=== PATIENT | female | born 1980 | race Caucasian/White ===

== ENCOUNTER 2016-04-19 14:46 | Inpatient (IN) | payer OTHER ==
[2016-04-19] MEDS ORDERED: ALBUTEROL NEB 2.5 MG/3 ML VIAL.NEB NEB ONE ×2 (15:09→17:24)
[2016-04-19] MEDS ORDERED: ALBUTEROL/IPRATROPIUM 2.5/0.5 MG 3 ML/EACH DOSE ONE (15:09)
--- NOTE | 2016-04-19 15:52 | RAD ---
CHEST 2 VIEWS HISTORY: Cough and shortness of breath x3 days. Fever. Frontal and lateral chest radiographs dated 04/19/2016. COMPARISON: 05/14/2014. FINDINGS: FOCAL AIRSPACE OPACITY: Bibasilar airspace opacities, right greater than left. PLEURAL EFFUSION: None. CARDIOMEDIASTINAL SILHOUETTE: Nonenlarged. PNEUMOTHORAX: None identified. OSSEOUS STRUCTURES: No grossly destructive lesions. IMPRESSION: Bilateral lower lobe pneumonia. Recommend short-term follow-up examination to ensure resolution of abnormality.
[2016-04-19 16:38] LABS: BASO % 0.3 % (0.2-1.0); EOS # 0.1 (0.0-0.5); EOS % 0.8 % (0.9-2.9); HEMATOCRIT 35.5 % (37.0-47.0); HEMOGLOBIN 11.6 gm/l (12.0-16.0); IMM NEUT% 0.5 % (0-1); LYMPH # 2.1 (1.0-4.8); LYMPH % 27.7 % (15-45); MEAN CELL VOLUME 83.1 fl (81.0-99.0); MEAN CORPUSCULAR HEMOGLOBIN 27.2 pg (27.0-31.0); MEAN CORPUSCULAR HGB CONC 32.7 g/dl (33.0-37.0); MEAN PLATELET VOLUME 10.3 fl (7.4-10.4); MONO # 0.4 (0.0-0.8); MONO % 5.3 % (4-12); NEUT % 65.4 % (43-75); PLATELET COUNT 232 K/mm3 (130-400); RED CELL DISTRIBUTION WIDTH 13.7 % (11.5-14.5)
[2016-04-19] MEDS ORDERED: AZITHROMYCIN 500 MG VIAL ONE (16:41)
[2016-04-19] MEDS ORDERED: ACETAMINOPHEN 500 MG TABLET ONE (16:41)
[2016-04-19] MEDS ORDERED: SODIUM CHLORIDE 0.9% 1,000 ML ONE (16:41)
[2016-04-19] MEDS ORDERED: SODIUM CHLORIDE 0.9% 250 ML IV ONE (16:42)
[2016-04-19 16:58] LABS: I-STAT CREATININE 0.7 mg/dL (0.6-1.3)
[2016-04-19 17:04] LABS: HCG,QUALITATIVE URINE NEGATIVE
[2016-04-19] MEDS ORDERED: CEFTRIAXONE 1 GRAM DUPLEX 50 ML IV ONE (18:16)
[2016-04-19] MEDS ORDERED: MAGNESIUM HYDROXIDE 30 ML UDCUP PO PRN (19:44)
[2016-04-19] MEDS ORDERED: MENTHOL/CETYLPYRD 1 EACH LOZENGE PO PRN (19:44)
[2016-04-19] MEDS ORDERED: BLISTEX LIPSTICK 1 EACH TP PRN (19:44)
[2016-04-19] MEDS ORDERED: SODIUM CHLORIDE 0.9% 100 ML IV PRN (19:44)
[2016-04-19] MEDS ORDERED: BISACODYL 5 MG TABLET.EC PO PRN (19:44)
[2016-04-19] MEDS ORDERED: BISACODYL 10 MG SUP PR PRN (19:44)
[2016-04-19] MEDS ORDERED: ALBUTEROL NEB 2.5 MG/3 ML VIAL.NEB NEB PRN (19:47)
--- NOTE | 2016-04-19 20:58 | HP ---
KIMMIE JOLLY [id number] DATE OF ADMISSION: April 19, 2016 CHIEF COMPLAINT: Cough. HISTORY OF PRESENT ILLNESS: The patient is a 36-year-old female who reports a two to three week history of some chills, aches and feeling cold. She generally had been doing better and was feeling that she was getting over this when she started having more of a cough three days ago with dyspnea over the three day period. She notes some chest pain, some yellow sputum and feeling dizzy and feeling shaky. 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 She vomited once in a post tussive fashion but has otherwise not had a lot of gastrointestinal symptoms. She presented to the emergency room and was noted to have bilateral lower lobe infiltrates. PAST MEDICAL HISTORY: 1. She has a history of preeclampsia in 2013. 2. She is 10, para 6, with last delivery December 16, 2015 and is still nursing. PAST SURGICAL HISTORY: 1. section in 2015. 2. Tubal ligation in 2015. ALLERGIES: 1. AMOXICILLIN WHICH GAVE HER SOME FEELING OF BEING WORSE AND A FEVER. 2. PENICILLIN. 3. IMITREX. MEDICATIONS: She takes: 1. Acetaminophen. 2. Ibuprofen. 3. She had previously been on Robitussin but does not take any prescription medications. 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 She is single but lives with her four kids and her son's father. He works testing [place]. She has eight dogs and three cats. Kids are ages 15, 8, 6, and 4 months old. No smoking, no alcohol. No particular religion affiliation. Hobbies include being a mom. She denies having enough free time for a hobby. FAMILY HISTORY: Father, no data. Mom, leaky heart valve. Some other family history of heart disease, and her sister has atrial fibrillation. REVIEW OF SYSTEMS: Eyes have been okay, just needing glasses. 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 Nose is okay. Mouth is okay. Teeth are okay. Neck is okay. She has had this cough as above. No heart complaints except for palpitations when stressed. Stomach is okay, no diarrhea, just the post tussive vomiting noted before. No urinary complaints. She is not . Last menstrual period was March 22, 2015. She has had no central nervous symptom problems, no strokes, no seizures and reports mood has been good. PHYSICAL EXAM: GENERAL: A pale female. VITAL SIGNS: Temperature 98.6, pulse 118, saturation 93% on two liters, blood pressure 100/71, respirations 18. HEAD: Head is normocephalic, atraumatic. EYES: Are unremarkable. EARS: Grossly unremarkable. NOSE: Is normal. MOUTH: Oropharynx unremarkable. Dentition is good. NECK: Is supple, without masses or adenopathy. LUNGS: Crackles heard at the bases bilaterally with some slight wheezy breath sounds and decreased air movement bilaterally. HEART: Regular rate and rhythm, she is slightly tachycardic. ABDOMEN: Soft, nontender, nondistended. Bowel sounds are normal. No rebound, no guarding, no masses. EXTREMITIES: Without edema. She has [place] tattooed on the side of her foot and another tattoo on her left forearm. NEUROLOGIC: Eye contact is good. Speech is appropriate. Cranial nerves are intact. She appears tired but otherwise answers appropriately. LABORATORY: Lab is incomplete so far due to machine being down but shows a white count of 7.6, hemoglobin 11.6, platelets 232. MCV is 83.1, lactate 2.2. Sodium 141, potassium 3.1, chloride 104, BUN 6, creatinine 0.7, glucose 134, calcium ionized is 1.12. HCG is negative. Influenza testing is negative. Liver function tests are pending. IMAGING: Chest x-ray shows bilateral lower lobe pneumonia. ASSESSMENT AND PLAN: 1. Bilateral lower lobe pneumonia, community acquired pneumonia. Could be post influenza bacterial superinfection. Anticipate Rocephin, azithromycin and albuterol with oxygen supplementation at this time and monitor for response. We will see if cultures are helpful. 2. Four months . We will check a BNP and a D-dimer but anticipate that these are not likely to be factors. 3. 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 Review of azithromycin and Rocephin should be okay in case of nursing. 4. Respiratory distress associated with community acquired pneumonia. Anticipate oxygen, nebulizers. 5. Sepsis with tachycardia and impaired respiratory function and elevated lactate. We will be giving additional dose of IV fluid and recheck lactate later tonight here, anticipate 30 mL per kilogram IV fluid bolus and recheck lactate. cc: Soy Horan M.D.
[2016-04-19] MEDS ORDERED: PUMP TUBING ONE (21:51)
[2016-04-19] MEDS: SODIUM CHLORIDE 0.9% 1,000 ML IV SCH ×2 (21:56→23:09)
[2016-04-19 21:59] LABS: ALB/GLOB RATIO 0.9 (>1.0); ALBUMIN 3.7 gm/dL (3.5-5.7); CALCIUM 8.7 mg/dL (8.6-10.3)
[2016-04-19] MEDS: IBUPROFEN 200 MG TABLET PO PRN (22:22)
[2016-04-19] MEDS: DOCUSATE SODIUM 100 MG CAPSULE PO SCH (22:23)
[2016-04-19 22:39] LABS: SPECIFIC GRAVITY 1.015 (1.001-1.030); URINE BILIRUBIN NEGATIVE (NEGATIVE); URINE BLOOD TRACE (NEGATIVE); URINE GLUCOSE (UA) NEGATIVE (NEGATIVE); URINE LEUKOCYTE ESTERASE NEGATIVE (NEGATIVE); URINE NITRITE NEGATIVE (NEGATIVE); URINE PROTEIN TRACE (NEGATIVE); URINE UROBILINOGEN NORMAL (0-1 mg/dl)
[2016-04-19 22:42] LABS: URINE APPEARANCE SL CLOUDY; URINE COLOR DARK YELLOW
[2016-04-19 23:02] LABS: URINE BACTERIA RARE; URINE RBC 0-2 /hpf; URINE WBC 0-2 /hpf
[2016-04-20 01:15] VITALS: BMI 29.9
[2016-04-20] MEDS ORDERED: IV START KIT ONE (05:15)
[2016-04-20 06:44] LABS: ABSOLUTE NEUTROPHIL COUNT 5.3 K/mm3 (1.8-7.7); BASO % 0.3 % (0.2-1.0); EOS % 0.6 % (0.9-2.9); HEMATOCRIT 31.1 % (37.0-47.0); IMM NEUT% 0.6 % (0-1); LYMPH # 1.1 (1.0-4.8); MEAN CELL VOLUME 84.1 fl (81.0-99.0); MEAN CORPUSCULAR HGB CONC 32.2 g/dl (33.0-37.0); MEAN PLATELET VOLUME 10.3 fl (7.4-10.4); MONO # 0.5 (0.0-0.8); MONO % 6.5 % (4-12); PLATELET COUNT 203 K/mm3 (130-400); RED CELL DISTRIBUTION WIDTH 13.6 % (11.5-14.5)
[2016-04-20 06:55] LABS: CALCIUM 8.4 mg/dL (8.6-10.3)
[2016-04-20] MEDS ORDERED: IOPAMIDOL 370 (76%) 100 ML VIAL IV ONE (07:50)
--- NOTE | 2016-04-20 08:22 | CT ---
CHEST CTA HISTORY: Shortness of breath, elevated d-dimer. TECHNIQUE: Following the administration of 80 mL 370 intravenous contrast, contiguous axial images were acquired from the thoracic inlet to the diaphragmatic hiatus for CT pulmonary angiography. Three-dimensional reformatted imaging was not performed. Comparison against 04/15/2014 study. FINDINGS: PULMONARY ARTERIAL TREE: Technically adequate enhancement: No dominant filling defects. THORACIC AORTA: Normal caliber. No evidence of dissection. LUNGS: Extensive airspace consolidation involving the bilateral lower lobes as well as posterior aspects of the right upper lobe, correlate for multifocal pneumonia. A minimal right pleural effusion is noted.. STEPHANI AND MEDIASTINUM: A right hilar lymph node measures 1.3 cm in size, previously 6 mm in width. A subcarinal lymph node measures 9 mm in width. AXILLAE: No grossly enlarged lymph nodes. UPPER ABDOMEN:No gross mass effect. OSSEOUS STRUCTURES: No grossly destructive lesions. IMPRESSION: No CTA evidence of proximal order pulmonary embolus. Multifocal airspace disease involving the lower lobes and right upper lobe, compatible with pneumonia. Minor mediastinal and right hilar adenopathy. Trace right pleural effusion. Findings discussed with Dr. Weber of the hospitalist clinical service on 04/20/2016 at 0818 hours.
[2016-04-20] MEDS: IBUPROFEN 200 MG TABLET PO PRN ×2 (08:27→16:04)
[2016-04-20] MEDS: DOCUSATE SODIUM 100 MG CAPSULE PO SCH ×2 (09:10→20:28)
--- NOTE | 2016-04-20 12:15 | PDOC43 ---
- Subjective Chief Complaint: Pneumonia Patient notes some cough, some headache posteriorly with cough improved with ibuprofen, and sweating last night, didn't sleep so well. No new c/o. - Objective Vital Signs Temperature 97.9 F 04/20/16 11:00 Pulse Rate 106 04/20/16 11:00 Respiratory Rate 16 04/20/16 11:00 Blood Pressure 107/71 04/20/16 11:00 O2 Saturation by Pulse Oximetry 92 04/20/16 11:00 Oxygen Delivery Method Nasal Cannula Oxygen Flow Rate 2 Vital Signs Last 12 Hours Temp Pulse Resp BP Pulse Ox 04/20/16 11:00 97.9 F 106 16 107/71 92 04/20/16 08:27 102 22 95 04/20/16 07:50 20 95 04/20/16 07:12 99.1 F 106 16 100/64 97 04/20/16 05:21 98.6 F 98 22 102/66 94 04/20/16 02:00 28 04/20/16 00:15 101.8 F 124 28 126/84 98 Intake and Output 04/18/16 04/19/16 04/20/16 23:59 23:59 23:59 Intake Total 2299 Output Total 1200 Balance 1099 General: Alert, Cooperative, Other (color better, more at ease today.), No Acute Distress Lungs: Other (Fair air movement bilat. Crackles posterior bases bilat.) Cardiovascular: Regular Rate and Rhythm Abdomen: Soft, Normal Bowel Sounds, Non-Distended Extremities: No Edema Skin: Normal Color (improved today) Neurological: Normal Speech Laboratory 04/20/16 05:30 04/20/16 05:30 04/20/16 04/20/16 05:30 00:20 RBC 3.70 L MCHC 32.2 L D-Dimer 1.31 H BUN 4 L Estimated GFR 114 H Calcium 8.4 L Current Medications: Current meds reviewed in EMR. Active Medications Acetaminophen (Tylenol) 650 mg PO Q6H PRN PRN Reason: Pain or Temperature > 100.5 F Albuterol Sulfate (Ventolin Inhalation Solution (Dose)) 2.5 mg NEB Q3H PRN PRN Reason: Wheezing Last Admin: 04/20/16 08:27 Dose: 2.5 mg Benzocaine/Menthol (Cepacol) 1 each PO PRN PRN PRN Reason: Sore Throat Bisacodyl (Dulcolax) 10 mg UT DAILY PRN PRN Reason: Constipation Bisacodyl (Dulcolax) 5 mg PO DAILY PRN PRN Reason: Constipation Docusate Sodium (Colace) 100 mg PO BID [facility] Last Admin: 04/20/16 09:10 Dose: Not Given Sodium Chloride (Sodium Chloride 0.9%) 100 mls @ 25 mls/hr IV PRN PRN PRN Reason: Flush Azithromycin 500 mg/ Sodium (Chloride) 250 mls @ 250 mls/hr IV Q24H [facility] Ceftriaxone Sodium/Dextrose (Rocephin 2 Gram Premix) 50 mls @ 200 mls/hr IV Q24H [facility] Ibuprofen (Advil) 400 mg PO QID PRN PRN Reason: Pain or Temperature > 100.5 F Last Admin: 04/20/16 08:27 Dose: 400 mg Magnesium Hydroxide (Milk Of Magnesia) 30 ml PO DAILY PRN PRN Reason: Constipation Petrolatum/Paraffin/Mineral Oil (Blistex) 1 each TP PRN PRN PRN Reason: Dry and/or chapped lips Sodium Chloride (Normal Saline 10ml Flush) 10 - 50 ml IV PRN PRN PRN Reason: IV Flush Last Admin: 04/20/16 05:44 Dose: 10 ml Sodium Chloride (Normal Saline 10ml Flush) 10 ml IV Q8HR [facility] Last Admin: 04/20/16 08:29 Dose: 10 ml - Problems: Assessment/Plan (1) Community acquired pneumonia Status: Acute Assessment/Plan: Presumed bacterial, organism not identified Rocephin, azithromycin started 04/19. Mild hypoxia, on O2 for respiratory distress due to CAP, will continue on IV abx and recheck in am. (2) Respiratory distress Status: Acute Assessment/Plan: due to CAP, on supplemental O2 Continue abx, continue nebs, O2. VTE Prophylaxis: enoxaparin ordered Disposition: anticipate return to home in 1-2 days.
[2016-04-20] MEDS ORDERED: SODIUM CHLORIDE 0.9% 1,000 ML IV SCH (12:30)
[2016-04-20] MEDS ORDERED: PUMP TUBING ONE (13:11)
[2016-04-20] MEDS: ENOXAPARIN SODIUM 40 MG/0.4 ML SYRINGE SUB-Q SCH (13:16)
[2016-04-20] MEDS: AZITHROMYCIN 500 MG in SODIUM CHLORIDE 0.9% 250 ML IV SCH (16:00)
[2016-04-20] MEDS: CEFTRIAXONE 2 GRAM DUPLEX 50 ML IV SCH (17:36)
[2016-04-21] MEDS: ACETAMINOPHEN 325 MG TABLET PO PRN ×2 (01:20→14:28)
[2016-04-21] MEDS: IBUPROFEN 200 MG TABLET PO PRN ×2 (07:21→17:54)
[2016-04-21] MEDS: DOCUSATE SODIUM 100 MG CAPSULE PO SCH ×2 (08:31→20:27)
--- NOTE | 2016-04-21 11:05 | PDOC43 ---
- Subjective Chief Complaint: Pneumonia Patient reports feeling better, would like to take a shower. No new c/o. Still on O2, still has had desat on RA at rest. Hoping to go home soon. - Objective Vital Signs Temperature 99.2 F 04/21/16 07:47 Pulse Rate 102 04/21/16 07:47 Respiratory Rate 20 04/21/16 07:47 Blood Pressure 105/71 04/21/16 07:47 O2 Saturation by Pulse Oximetry 93 04/21/16 07:47 Oxygen Delivery Method Nasal Cannula Oxygen Flow Rate 2 Vital Signs Last 12 Hours Temp Pulse Resp BP Pulse Ox 04/21/16 07:47 99.2 F 102 20 105/71 93 04/21/16 07:11 20 04/21/16 07:00 88 04/21/16 03:10 99.6 F 92 18 102/72 98 04/21/16 02:00 18 04/20/16 23:00 99.0 F 96 18 106/68 95 Intake and Output 04/19/16 04/20/16 04/21/16 23:59 23:59 23:59 Intake Total 4303 500 Output Total 2400 1000 Balance 1903 -500 General: Alert, Cooperative, No Acute Distress HEENT: Atraumatic Lungs: Diminished at Bases, Other (crackles posterior bases, but improved bilat. ) Cardiovascular: Regular Rate and Rhythm Abdomen: Soft, Normal Bowel Sounds, Non-Distended Extremities: No Edema Skin: Normal Color Neurological: Normal Speech Psych/Mental Status: Normal Affect, Normal Mood Laboratory 04/20/16 05:30 04/20/16 05:30 Cultures negative so far. Current Medications: Current meds reviewed in EMR. Active Medications Acetaminophen (Tylenol) 650 mg PO Q6H PRN PRN Reason: Pain or Temperature > 100.5 F Last Admin: 04/21/16 01:20 Dose: 650 mg Albuterol Sulfate (Ventolin Inhalation Solution (Dose)) 2.5 mg NEB Q3H PRN PRN Reason: Wheezing Last Admin: 04/20/16 08:27 Dose: 2.5 mg Benzocaine/Menthol (Cepacol) 1 each PO PRN PRN PRN Reason: Sore Throat Bisacodyl (Dulcolax) 10 mg NM DAILY PRN PRN Reason: Constipation Bisacodyl (Dulcolax) 5 mg PO DAILY PRN PRN Reason: Constipation Docusate Sodium (Colace) 100 mg PO BID [facility] Last Admin: 04/21/16 08:31 Dose: Not Given Enoxaparin Sodium (Lovenox) 40 mg SUB-Q Q24H [facility] Last Admin: 04/20/16 13:16 Dose: 40 mg Sodium Chloride (Sodium Chloride 0.9%) 100 mls @ 25 mls/hr IV PRN PRN PRN Reason: Flush Azithromycin 500 mg/ Sodium (Chloride) 250 mls @ 250 mls/hr IV Q24H [facility] Last Admin: 04/20/16 16:00 Dose: 250 mls/hr Ceftriaxone Sodium/Dextrose (Rocephin 2 Gram Premix) 50 mls @ 200 mls/hr IV Q24H [facility] Last Admin: 04/20/16 17:36 Dose: 200 mls/hr Ibuprofen (Advil) 400 mg PO QID PRN PRN Reason: Pain or Temperature > 100.5 F Last Admin: 04/21/16 07:21 Dose: 400 mg Magnesium Hydroxide (Milk Of Magnesia) 30 ml PO DAILY PRN PRN Reason: Constipation Petrolatum/Paraffin/Mineral Oil (Blistex) 1 each TP PRN PRN PRN Reason: Dry and/or chapped lips Sodium Chloride (Normal Saline 10ml Flush) 10 - 50 ml IV PRN PRN PRN Reason: IV Flush Last Admin: 04/20/16 13:16 Dose: 10 ml Sodium Chloride (Normal Saline 10ml Flush) 10 ml IV Q8HR [facility] Last Admin: 04/21/16 08:54 Dose: 10 ml - Problems: Assessment/Plan (1) Community acquired pneumonia Status: Acute Assessment/Plan: Presumed bacterial, organism not identified Rocephin, azithromycin started 04/19. Mild hypoxia, still on O2 for respiratory distress due to CAP, will continue on IV abx and recheck in am. Plan to get a shower, and recheck activity tolerance and respiratory status this afternoon, but anticipate ready to go in am. (2) Respiratory distress Status: Acute Assessment/Plan: due to CAP, on supplemental O2 Continue abx, continue nebs, O2. VTE Prophylaxis: enoxaparin ordered Disposition: anticipate return to home tomorrow if can do light activity on RA.
[2016-04-21] MEDS: ENOXAPARIN SODIUM 40 MG/0.4 ML SYRINGE SUB-Q SCH (13:06)
[2016-04-21] MEDS: CEFTRIAXONE 2 GRAM DUPLEX 50 ML IV SCH (17:47)
[2016-04-21] MEDS ORDERED: AZITHROMYCIN 500 MG in SODIUM CHLORIDE 0.9% 250 ML IV SCH (18:27)
[2016-04-21] MEDS: AZITHROMYCIN 500 MG in SODIUM CHLORIDE 0.9% 250 ML IV SCH ×2 (18:38→19:00)
[2016-04-22] MEDS: IBUPROFEN 200 MG TABLET PO PRN (08:16)
[2016-04-22] MEDS: DOCUSATE SODIUM 100 MG CAPSULE PO SCH (08:16)
--- NOTE | 2016-04-22 11:17 | PDOC43 ---
- Subjective Chief Complaint: Pneumonia Patient had been doing fairly well yesterday, just with poor activity tolerance , but able to maintain sats on RA. She notes being tired today, but more related to her cat having kittens at home, and the kids skipping school today. - Objective Vital Signs Temperature 99.2 F 04/22/16 08:52 Pulse Rate 92 04/22/16 08:52 Respiratory Rate 16 04/22/16 08:52 Blood Pressure 107/72 04/22/16 08:52 O2 Saturation by Pulse Oximetry 91 04/22/16 08:52 Oxygen Delivery Method Room Air Oxygen Flow Rate 0 Vital Signs Last 12 Hours Temp Pulse Resp BP Pulse Ox 04/22/16 08:52 99.2 F 92 16 107/72 91 04/22/16 08:15 16 04/22/16 01:28 98.6 F 71 16 108/71 91 04/22/16 01:00 16 04/21/16 23:42 98.6 F 87 18 105/74 94 Intake and Output 04/20/16 04/21/16 04/22/16 23:59 23:59 23:59 Intake Total 4303 1000 574 Output Total 2400 1000 400 Balance 1903 0 174 General: Alert, Cooperative, No Acute Distress HEENT: Atraumatic Lungs: Other (coarse breath sounds, crackles bilat posteriorly. Sl wheeze noted .) Cardiovascular: Regular Rate and Rhythm Abdomen: Soft Extremities: No Edema, No Tenderness Skin: Normal Color (sl pale) Neurological: Normal Speech Psych/Mental Status: Normal Affect Laboratory 04/20/16 05:30 04/20/16 05:30 Current Medications: Current meds reviewed in EMR. Active Medications Acetaminophen (Tylenol) 650 mg PO Q6H PRN PRN Reason: Pain or Temperature > 100.5 F Last Admin: 04/21/16 14:28 Dose: 650 mg Albuterol Sulfate (Ventolin Inhalation Solution (Dose)) 2.5 mg NEB Q3H PRN PRN Reason: Wheezing Last Admin: 04/20/16 08:27 Dose: 2.5 mg Benzocaine/Menthol (Cepacol) 1 each PO PRN PRN PRN Reason: Sore Throat Last Admin: 04/22/16 08:16 Dose: 1 each Bisacodyl (Dulcolax) 10 mg MS DAILY PRN PRN Reason: Constipation Bisacodyl (Dulcolax) 5 mg PO DAILY PRN PRN Reason: Constipation Docusate Sodium (Colace) 100 mg PO BID [facility] Last Admin: 04/22/16 08:16 Dose: Not Given Enoxaparin Sodium (Lovenox) 40 mg SUB-Q Q24H [facility] Last Admin: 04/21/16 13:06 Dose: 40 mg Sodium Chloride (Sodium Chloride 0.9%) 100 mls @ 25 mls/hr IV PRN PRN PRN Reason: Flush Last Admin: 04/21/16 17:47 Dose: 25 mls/hr Ceftriaxone Sodium/Dextrose (Rocephin 2 Gram Premix) 50 mls @ 200 mls/hr IV Q24H [facility] Last Admin: 04/21/16 17:47 Dose: 200 mls/hr Azithromycin 500 mg/ Sodium (Chloride) 250 mls @ 250 mls/hr IV Q24H [facility] Ibuprofen (Advil) 400 mg PO QID PRN PRN Reason: Pain or Temperature > 100.5 F Last Admin: 04/22/16 08:16 Dose: 400 mg Magnesium Hydroxide (Milk Of Magnesia) 30 ml PO DAILY PRN PRN Reason: Constipation Petrolatum/Paraffin/Mineral Oil (Blistex) 1 each TP PRN PRN PRN Reason: Dry and/or chapped lips Sodium Chloride (Normal Saline 10ml Flush) 10 - 50 ml IV PRN PRN PRN Reason: IV Flush Last Admin: 04/20/16 13:16 Dose: 10 ml Sodium Chloride (Normal Saline 10ml Flush) 10 ml IV Q8HR [facility] Last Admin: 04/22/16 08:16 Dose: 10 ml - Problems: Assessment/Plan (1) Community acquired pneumonia Status: Acute Assessment/Plan: Presumed bacterial, organism not identified Rocephin, azithromycin started 04/19. Mild hypoxia, now on RA - anticipate ready to go this am. (2) Respiratory distress Status: Acute Assessment/Plan: due to CAP, now improved. (3) Anemia Qualifiers: Anemia type: unspecified type Qualifier Code: (D64.9) Anemia, unspecified Status: Acute Assessment/Plan: , sl further drop on admission due to hydration. VTE Prophylaxis: enoxaparin ordered Disposition: anticipate return to home if can do light activity on RA.
--- NOTE | 2016-04-22 12:00 | DS ---
Caryn Page [id number] DATE OF ADMISSION: 04/19/2016 DATE OF DISCHARGE: Anticipated 04/22/2016 DISCHARGE DIAGNOSES: 1. Community acquired pneumonia bilateral, suspected post influenza, bacterial, organism not identified. 2. Respiratory distress with wheezing and dyspnea requiring oxygen supplementation. 3. Four month status. 4. 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 5. Anemia felt to be also due to hydration. REASON FOR ADMISSION: The patient is a 36-year-old female who is four months . 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 She had felt like she was getting through this, but then had a worsening of symptoms and presented to the emergency room. In the emergency room, her lab showed a white count of 7.6, hemoglobin 11.6, platelets 232, D-dimer was elevated at 1.31. Lactate initially was 2.2, but subsequently improved at 1.6. Chemistry profile showed a slightly low potassium at 3.3, sodium 142, BUN 7, creatinine 0.8, glucose 127, alk phos elevated at 217, BNP of 12, albumin 3.7, globulin 4.0. Urinalysis was negative. HCG was negative. Influenza testing was negative. Because of the elevated D-dimer she underwent CTA angiogram showing no evidence of proximal or pulmonary embolus, but multifocal airspace disease involving the lower lobes and right upper lobe compatible with pneumonia, minor mediastinal and right hilar adenopathy, trace right pleural effusion. Hospitalist service accepted this patient and treated her on med/surg with Rocephin and azithromycin. She also received nebulizer treatments and supplemental oxygen. She demonstrated good gradual improvement day by day and was maintaining saturations on room air by 04/21/2016 although, still felt quite tired. By 04/22/2016 she was able to tolerate light activity well. She is anticipated to be discharge to home and will continue on: 1. Ceftin 500 mg by mouth twice daily x7 more days. 2. Albuterol meter dose inhaler 1 to 2 puffs inhaled every 4 hours as needed. 3. A prescription for was given for Cetirizine 10 mg daily as needed as she reports one of her cats is having kittens currently. Patient's vital signs show a temperature of 99.2, blood pressure 107/72, respirations 16, 91% saturation on room air on the morning of 04/22/2016. FOLLOW UP: With Dr. Soy Horan in 7-10 days. Blood cultures were negative. JOB: [id number] CC: Dr. Soy Horan
[2016-04-22] MEDS: ENOXAPARIN SODIUM 40 MG/0.4 ML SYRINGE SUB-Q SCH (12:12)
[2016-04-22 12:23] VITALS: BP 110/79
[2016-04-22] MEDS ORDERED: AZITHROMYCIN 500 MG in SODIUM CHLORIDE 0.9% 250 ML IV SCH (16:00)
== END 2016-04-22 14:45 | disposition home or self-care (01) | DRG 871 ==
LOC: ED 14:46 → MS 18:12
PROVIDERS: ADMIT Family Medicine; ATTEND Family Medicine
DX: A41.9 Sepsis, unspecified organism (principal); J18.9 Pneumonia, unspecified organism; R06.00 Dyspnea, unspecified; D64.9 Anemia, unspecified